=== PATIENT | female | born 1985 | race Caucasian/White ===

== ENCOUNTER 2018-11-10 16:36 | Inpatient (IN) ==
[2018-11-10] MEDS ORDERED: DEXTROSE 5%-LACTATED RINGERS 1,000 ML IV PRN (21:43)
[2018-11-10] MEDS ORDERED: OXYTOCIN/DEXTROSE 5%-WATER 30 UNITS/500 ML BAG IV ONE (21:43)
[2018-11-10] MEDS ORDERED: RINGER'S SOLUTION,LACTATED 1,000 ML IV ONE (21:43)
[2018-11-10] MEDS ORDERED: ONDANSETRON HCL/PF 2 MG/ML VIAL IV PRN (21:48)
[2018-11-10] MEDS ORDERED: BUPIVACAINE HCL/0.9 % NACL/PF 250 ML EP PRN (21:48)
[2018-11-10] MEDS ORDERED: NALOXONE HCL 1 MG/1 ML SYRG IV PRN (21:48)
[2018-11-10] MEDS ORDERED: fentaNYL CITRATE/PF 50 MCG/ML AMPUL IT SCH (22:00)
[2018-11-10] MEDS ORDERED: LIDOCAINE HCL/EPINEPHRINE 20 ML VIAL IJ ONE (22:34)
[2018-11-10] MEDS ORDERED: LIDOCAINE HCL 50 ML VIAL ONE (23:19)
--- NOTE | 2018-11-10 23:40 | ANES ---
Anesthesia Pre Procedure Eval Vitals/Labs: Last Vital Signs Temp 36.7 C 11/10/18 21:00 Pulse 84 11/10/18 21:00 Resp 16 11/10/18 21:00 BP 133/72 11/10/18 21:00 Pulse Ox 100 11/10/18 21:00 HOME MEDICATIONS vitamin,calcium,sbglarfa-usse-axknt acid tablet 1 tab PO DAILY 04/13/18 [Last Taken 11/09/18 21:00] aspirin 81 mg tablet,delayed release 81 mg PO DAILY #30 tab 05/26/18 [Last Taken 11/09/18 21:00] ferrous sulfate 325 mg (65 mg iron) tablet 325 mg PO DAILY #30 tab 09/12/18 [Las t Taken 11/09/18 21:00] Allergies/Adverse Reactions: Allergies Allergy/AdvReac Type Severity Reaction Status Date / Time No Known Allergies Allergy Verified 11/10/18 14:02 - Planned Procedure Planned Procedure: LABOR Medication List Reviewed:: Yes Allergies Verified: Yes Medical History (Updated 09/12/18 @ 16:52 by Ha Ramos RN) History of pre-eclampsia (Chronic) Cervical dysplasia Onset Date: 08/03/17 RONDA I Abnormal Pap smear of cervix Onset Date: ~08/2009 Body piercing Onset Date: Unknown Wears glasses Onset Date: Unknown Anemia Onset Date: ~2011 w/pregnancies Pre-eclampsia affecting , antepartum Onset Date: ~03/2009 & 10/10 Surgical History (Updated 04/13/18 @ 09:00 by Ha Ramos RN) History of colposcopy Onset Date: 09/24/09 09/24/09, 05/23/10-RONDA I, 08/03/17-RONDA I [place] teeth extracted Onset Date: ~2004 Family History (Updated 04/13/18 @ 09:09 by Ha Ramos RN) Mother Hypertension Anxiety Squamous cell carcinoma of rectum routine colonoscopy Brother Carcenoid Cancer Liver transplant recipient Grandfather Diabetes Grandfather Obesity Grandmother Depression Grandmother Obesity - Family Anesthesia History Family History:: no untoward family reactions to anesthesia - Airway/Neck/Teeth Within Normal Limits:: Yes Teeth Condition: intact Neck Exam: full range of motion Mallampatti Score: 1 Thyromental (T-M) distance: > 6 cm Mandibulo Hyoid distance: > 3 cm - Respiratory Respiratory Physical: lungs clear Smoking Status: Never smoker Sleep Apnea currently treated: No Sleep Apnea by current assessment: No - Cardiovascular Tolerate Activity: Good Heart Sounds: S1 & S2, Regular - Anesthesia Assessment and Plan ASA Class: PS, II, E Anesthesia Type Plan: Epidural Planned difficult intubation/equipment available: No
--- NOTE | 2018-11-10 23:40 | ANES ---
Post Anesthesia Discharge - Transfer of Care Transfer of Care handoff given to nurse: Yes - Anesthesia Post Op Note Anesthesia Post Op Note: Care transferred to OB RN
--- NOTE | 2018-11-10 23:41 | ANES ---
Post Anesthesia Assessment - Vital Signs Vitals: Last Vital Signs Temp 36.7 C 11/10/18 21:00 Pulse 84 11/10/18 21:00 Resp 16 11/10/18 21:00 BP 133/72 11/10/18 21:00 Pulse Ox 100 11/10/18 21:00 Airway Patency: Normal - Mental Status Level Of Consciousness: Awake - Pain Level Pain Score: 1 - N/V Assessment Nausea/Vomiting Presence: None Dehydration:: No
--- NOTE | 2018-11-10 23:47 | ANES ---
Anesthesia Procedure Note Procedure Note: ANESTHESIA PROCEDURE NOTE Date of Procedure: 11/10/2018 Time of procedure: 0. Performed by: Jose Zaidi CRNA Cracker Off: None. Preprocedure diagnosis: Active labor. Post procedure diagnosis: Same. Procedure: Insertion of labor epidural. Indications: The patient is a 33-year-old multi para female in active labor requesting labor epidural for pain management. Findings: See below. Details of the procedure: The patient was placed in a sitting position. Back was prepped with DuraPrep. Patient was then draped in a sterile fashion. Lidocaine 1% was infiltrated to the skin and subcutaneous tissues at the level of the L4 5 interspace. Unintentional dural puncture. Epidural needle removed. 1% lidocaine was infiltrated to the skin and subcutaneous tissue at the L3-4 inter space. the epidural space was identified using a 18-gauge Tuohy needle with [id number]-[id number] technique. 20 mcg fentanyl was given intrathecally using a 27 ga. spinal needle. Epidural catheter was inserted without difficulty. Negative test dose was elicited using 3 mL of 2% preservative-free lidocaine plus epinephrine 1 200,000. The epidural catheter was then taped and secured in place. Signs and symptoms of potential post dural puncture headache were discussed with the patient. EBL: Minimal. Fluids: N/A. Specimen: N/A. Post procedure condition: The patient tolerated the procedure well. No complications were noted. Thank you for this consultation. Rogers CRNA
[2018-11-11] MEDS ORDERED: LIDOCAINE HCL 50 ML VIAL IJ ONE (00:01)
--- NOTE | 2018-11-11 00:25 | HP ---
Chief Complaint - Chief Complaint Date of Service: 11/11/18 Time of Service: 00:18 Chief Complaint: contractions History of Present Illness: 33 yo at 37 1/7 weeks admitted to L&D in labor. Patient began having contractions yesterday afternoon which have continued to increase in intensity. This with complication of history of preeclampsia. Rh positive Rubella immune GBS negative. Medical History (Updated 09/12/18 @ 16:52 by Ha Ramos RN) History of pre-eclampsia (Chronic) Cervical dysplasia Onset Date: 08/03/17 RONDA I Abnormal Pap smear of cervix Onset Date: ~08/2009 Body piercing Onset Date: Unknown Wears glasses Onset Date: Unknown Anemia Onset Date: ~2011 w/pregnancies Pre-eclampsia affecting , antepartum Onset Date: ~03/2009 & 10/10 Surgical History: Surgical History (Updated 04/13/18 @ 09:00 by Ha Ramos RN) History of colposcopy Onset Date: 09/24/09 09/24/09, 05/23/10-RONDA I, 08/03/17-RONDA I [place] teeth extracted Onset Date: ~2004 Family History: Family History (Updated 04/13/18 @ 09:09 by Ha Ramos RN) Mother Hypertension Anxiety Squamous cell carcinoma of rectum routine colonoscopy Brother Carcenoid Cancer Liver transplant recipient Grandfather Diabetes Grandfather Obesity Grandmother Depression Grandmother Obesity Social History: (Last Reviewed 11/10/18 @ 21:57 by Yvonne Acosta RN) Social History: adopted: No custodial: No Marital status: lives independently: Yes household members: spouse, children number of children: 2 current occupational status: employed current occupation: teacher current occupational exposures/hazards: No Highest education level completed: Bachelor's degree Sexually Active: Yes Service: No Tobacco: Smoking Status: Never smoker Alcohol: alcohol intake: current alcohol intake frequency: holiday/special occasion details: none with Substance Use: substance use type: does not use Dietary Habits: caffeine: Yes caffeine comment: 1/day Exercise: Physical activity type: none frequency: other Review Of Systems (GEN) - Review of Systems Generalized/Overall Review: Present: No Symptoms Reported EENTM: Present: No Symptoms Reported Respiratory: Present: No Symptoms Reported Cardiac: Present: No Symptoms Reported Abdominal: Present: Other - contractions Genitourinary: Present: No Symptoms Reported Musculoskeletal: Present: No Symptoms Reported Neurological: Present: No Symptoms Reported Skin: Present: No Symptoms Reported Endocrine: Present: No Symptoms Reported Allergies/Adverse Reactions: Allergies Allergy/AdvReac Type Severity Reaction Status Date / Time No Known Allergies Allergy Verified 11/10/18 14:02 Home Medications: HOME MEDICATIONS vitamin,calcium,ygzeeisx-pmen-theuf acid tablet 1 tab PO DAILY 04/13/18 [Last Taken 11/09/18 21:00] aspirin 81 mg tablet,delayed release 81 mg PO DAILY #30 tab 05/26/18 [Last Taken 11/09/18 21:00] ferrous sulfate 325 mg (65 mg iron) tablet 325 mg PO DAILY #30 tab 09/12/18 [Last Taken 11/09/18 21:00] Exam - Exam Vital Signs: Vital Signs - Last Taken Temp 36.7 C 11/10/18 21:00 Pulse 84 11/10/18 21:00 Resp 16 11/10/18 21:00 BP 133/72 11/10/18 21:00 Pulse Ox 100 11/10/18 21:00 Constitutional: Present: Alert, Oriented x3, Cooperative ENT Exam: Present: hearing grossly normal Breasts: Present: Exam deferred Respiratory: Present: lungs clear, no respiratory distress Cardiovascular/Chest: Present: regular rate, rhythm, no edema Abdomen: Present: soft, nontender, no rebound tenderness, other - gravid /Rectal: Present: Other - cervix - 6/80/-2 Extremity: Present: no pedal edema, no calf tenderness Skin Exam: Present: normal color, warm/dry, no cyanosis Neurologic: Present: alert, normal mood/affect, oriented x 3 Appearance: Present: appropriate appearance, appropriate insight Eye contact: Present: cooperative, good eye contact Thoughts: Present: normal thought pattern, normal mood /affect Assessment/Plan - Assessment/Plan (1) Labor established Assessment: Admit to L&D. Epidural PRN. Problem: Acute (2) History of pre-eclampsia Problem: Chronic
--- NOTE | 2018-11-11 00:33 | PN ---
Progess Note - Interim Date: 11/11/18 Time: 00:30 Narrative: 11/11/18 00:31 Pt comfortable with epidural Vital signs stable FHT 135, moderate variability, good accelerations, occasional early decels Contractionrs q3-4 min Cvx 8-9/80/-2, AROM at 2307 on 11/10/18 - clear A/P: 37 1/7 wk IUP, labor. Expect in next 1-2 hours.
[2018-11-11 00:49] LABS: Cocaine Ur Negative (NEGATIVE); Urine Barbiturate Negative (NEGATIVE); Urine Benzodiazepines Negative (NEGATIVE); Urine Opiates Negative (NEGATIVE); Urine PCP Negative (NEGATIVE); Urine THC Negative (NEGATIVE)
[2018-11-11] MEDS ORDERED: BISACODYL 10 MG SUPP.RECT RC PRN (02:11)
[2018-11-11] MEDS ORDERED: HYDROCORTISONE 30 APPL TUBE TP PRN (02:11)
[2018-11-11] MEDS ORDERED: BENZOCAINE/MENTHOL 81 SPRAY CAN TP PRN (02:11)
[2018-11-11] MEDS ORDERED: IBUPROFEN 800 MG TABLET PO PRN (02:11)
[2018-11-11] MEDS ORDERED: SENNOSIDES 8.6 MG TABLET PO PRN (02:11)
[2018-11-11] MEDS ORDERED: GLYCERIN/WITCH HAZEL LEAF 40 APPL BOX TP PRN (02:11)
[2018-11-11] MEDS ORDERED: OXYTOCIN/DEXTROSE 5%-WATER 30 UNITS/500 ML BAG IV ONE (02:11)
[2018-11-11] MEDS ORDERED: oxyCODONE HCL/ACETAMINOPHEN 1 TAB TABLET PO PRN (02:11)
--- NOTE | 2018-11-11 02:13 | OR ---
Operative Report - Dictated Report Narrative: Spontaneous vaginal delivery of vigorously crying viable male at 0152 on 11/11/2018 with Apgars 8 and 8, weighing 2968 g in ABA position. Cord clamping delayed approximately 1 minute Placenta delivered complete, intact, with three vessel cord Estimated blood loss: Less than 50 ml Anesthesia: Epidural Lacerations: None History for MU History for MU Definition: * The number of deliveries resulting in a live the patient experienced prior to current hospitalization * The previous delivery of live twins or any live multiple gestation is considered one live event. *If primagravida or nulliparous is documented select zero for the number of previous live births. Live Events: Live Events: 2
[2018-11-11] MEDS: IBUPROFEN 800 MG TABLET PO PRN ×3 (03:58→23:24)
[2018-11-11] MEDS: PRENATAL VITS96/IRON FUM/FOLIC 1 TAB TABLET PO SCH (08:44)
[2018-11-11] MEDS: FERROUS SULFATE 325 MG TABLET PO SCH (08:44)
[2018-11-11] MEDS: DOCUSATE SODIUM 100 MG CAPSULE PO SCH ×2 (08:44→20:33)
[2018-11-12] MEDS: IBUPROFEN 800 MG TABLET PO PRN ×2 (08:05→16:36)
[2018-11-12] MEDS: FERROUS SULFATE 325 MG TABLET PO SCH (08:05)
[2018-11-12] MEDS: DOCUSATE SODIUM 100 MG CAPSULE PO SCH ×2 (08:05→21:14)
--- NOTE | 2018-11-12 10:12 | PN ---
Subjective - Date and Time Seen Date: 11/12/18 Time: 10:12 Objective - Vitals Vitals: Last Vital Signs Temp 36.8 C 11/12/18 08:49 Pulse 86 11/12/18 08:49 Resp 16 11/12/18 08:49 BP 130/79 11/12/18 08:49 Pulse Ox 100 11/12/18 08:49 Patient denies complaints. Lochia wnl abdomen - soft, nontender Uterus -firm, at umbilicus - 1 no calf tenderness Impression: day #1 - s/p spontaneous vaginal delivery. Plan: Continue routine care Cauti Physician Documentation - Urinary Catheter Management Urethral ([place]) Date of Insertion: 11/11/18 Time of Insertion: 23:45 Assessment/Plan - Problems/Diagnosis (1) Labor established Problem: Acute (2) History of pre-eclampsia Problem: Chronic
[2018-11-12] MEDS: PRENATAL VITS96/IRON FUM/FOLIC 1 TAB TABLET PO SCH (17:37)
[2018-11-13] MEDS: IBUPROFEN 800 MG TABLET PO PRN ×2 (00:17→07:30)
[2018-11-13] MEDS: DOCUSATE SODIUM 100 MG CAPSULE PO SCH (07:30)
[2018-11-13] MEDS: PRENATAL VITS96/IRON FUM/FOLIC 1 TAB TABLET PO SCH (07:30)
[2018-11-13] MEDS: FERROUS SULFATE 325 MG TABLET PO SCH (07:30)
[2018-11-13 14:00] VITALS: BP 129/69
--- NOTE | 2018-11-14 01:10 | PN ---
Subjective - Date and Time Seen Date: 11/13/18 Time: :15 Objective - Vitals Vitals: Last Vital Signs Temp 36.2 C 11/13/18 09:00 Pulse 98 11/13/18 09:00 Resp 16 11/13/18 09:00 BP 129/69 11/13/18 09:00 Pulse Ox 99 11/13/18 09:00 Patient denies complaints. Lochia wnl abdomen - soft, nontender Uterus -firm, at umbilicus - 2 no calf tenderness Impression: day #2 - s/p spontaneous vaginal delivery. Plan: Routine discharge instructions Cauti Physician Documentation - Urinary Catheter Management Urethral ([place]) Date of Insertion: 11/11/18 Time of Insertion: 23:45 Assessment/Plan - Problems/Diagnosis (1) Labor established Problem: Acute (2) History of pre-eclampsia Problem: Chronic
== END 2018-11-13 12:30 | disposition home or self-care (01) | DRG 807 ==
LOC: OBCLINIC 16:36 → OB 21:06
PROVIDERS: ADMIT Obstetrics & Gynecology; ATTEND Obstetrics & Gynecology
CPT/HCPCS: 59025; 80307